=== PATIENT | male | born 1990 | race American Indian/Alaskan Native ===

== ENCOUNTER 2017-03-22 15:02 | Emergency (ER) | payer BC, OTHER ==
[2017-03-22 15:10] VITALS: BP 142/82
--- NOTE | 2017-03-22 18:11 | XRay Report ---
FINAL REPORT EXAM: XR FINGER(S) 2+V RT HISTORY: pain,edema,trauma TECHNIQUE: Two views right index finger and one view of the right hand Comparison: None FINDINGS: Normal bony mineralization. No fracture or dislocation. The right 2nd digit DIP joint is mildly hyperextended which may be positional. It is not subluxed. There is no radiopaque foreign body or soft tissue gas. The 2nd digit does not appear to be significantly swollen. There is no bony erosion. IMPRESSION: No plain film abnormality right 2nd digit other than mild right DIP hyper extension which is presumably positional for the x-ray. If this digit is hyperextended without passive extension, an underlying ligamentous injury is likely.
[2017-03-22] MEDS ORDERED: BOOSTRIX IM ONE (18:13)
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
== END 2017-03-22 18:43 | disposition home or self-care (01) ==
LOC: ED 15:02
DX: S60.021A Contusion of right index finger without damage to nail, initial encounter (principal); F17.200 Nicotine dependence, unspecified, uncomplicated; W23.0XXA Caught, crushed, jammed, or pinched between moving objects, initial encounter; Y93.89 Activity, other specified; Y99.8 Other external cause status; Y92.009 Unspecified place in unspecified non-institutional (private) residence as the place of occurrence of the external cause
CPT/HCPCS: 90471; 90715

== ENCOUNTER 2019-01-20 16:19 | Emergency (ER) | payer OTHER ==
[2019-01-20 17:09] VITALS: BP 145/84
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
--- NOTE | 2019-01-20 17:34 | XRay Report ---
XR spine lumbosacral 2-3V INDICATION / CLINICAL INFORMATION: Low back pain. COMPARISON: None available. FINDINGS: BONES/JOINT(S): No vertebral fracture. No significant degenerative changes. SOFT TISSUES: No significant abnormality. ADDITIONAL FINDINGS: None. Signer Name: Anival Siddiqi MD Signed: 01/20/2019 5:29 PM Workstation Name: [id number]
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
== END 2019-01-20 21:00 | disposition home or self-care (01) ==
LOC: ED 16:19
DX: S39.012A Strain of muscle, fascia and tendon of lower back, initial encounter (principal); S16.1XXA Strain of muscle, fascia and tendon at neck level, initial encounter; Z79.899 Other long term (current) drug therapy; V49.49XA Driver injured in collision with other motor vehicles in traffic accident, initial encounter; Y93.89 Activity, other specified; Y92.410 Unspecified street and highway as the place of occurrence of the external cause; Y99.8 Other external cause status
CPT/HCPCS: 72100